=== PATIENT | female | born 1970 | race Caucasian/White ===

== ENCOUNTER 2017-06-15 08:24 | Observation (INO) | payer OTHER ==
[~2017-06-15] VITALS: Ht 170.2 cm; Wt 95.3 kg
[2017-06-15 09:08] LABS: BASE EXCESS -0.7 mEq/L (-3 to +3); BICARBONATE 23.4 mEq/L (22-26); METHEMOGLOBIN 0.6 % (0-1.5); PCO2 36 mm Hg (35-45); PO2 258 mm Hg (80-100); pH 7.42 (7.35-7.45)
[2017-06-15 09:09] LABS: COMMENTS - BLOOD GASES A+C+; DEVICE NRB; FI02 100 %; O2 FLOW 15 L/MIN; SITE RR
[2017-06-15 09:22] LABS: BASOPHIL (%) 0.7 % (0-1); BASOPHIL COUNT 0.1 K/uL (0-0.1); EOSINOPHIL (%) 0.4 % (0-5); HEMATOCRIT 41.7 % (36.0-46.0); HEMOGLOBIN 14.1 G/DL (11.9-15.5); IMMATURE GRANULOCYTE (%) 0.6 % (0.0-0.7); LYMPHOCYTE (%) 16.5 % (15-42); LYMPHOCYTE COUNT 1.7 K/uL (1.0-2.8); MCH 30.3 PG (29.0-34.0); MCHC 33.8 G/DL (30.0-36.0); MCV 89.5 FL (83-99); MONOCYTE (%) 4.9 % (3-12); MONOCYTE COUNT 0.5 K/uL (0-0.8); NEUTROPHIL (%) 76.9 % (45-76); NEUTROPHIL COUNT 7.8 K/uL (1.8-6.4); PLATELET COUNT 249 K/uL (156-360); RBC DIS.WIDTH-CV 12.8 % (11.8-14.6); RBC DIS.WIDTH-SD 42.1 % (39-53); RED BLOOD COUNT 4.66 M/uL (3.80-5.20); WHITE BLOOD COUNT 10.1 K/uL (4.1-10.2)
[2017-06-15 09:30] LABS: CHLORIDE 107 mEq/L (99-109); SODIUM 142 mEq/L (136-147)
[2017-06-15 09:32] LABS: GLUCOSE 107 mg/dL (70-99)
[2017-06-15 09:36] LABS: CREATININE 0.7 mg/dL (0.6-1.3); GFR ESTIMATE (CALCULATED) > 59 mL/min/
[2017-06-15 09:37] LABS: UREA NITROGEN (BUN) 16 mg/dL (9-23)
[2017-06-15 09:44] LABS: TROP-I INTERPRETATION NEGATIVE; TROPONIN-I 0.11 ng/mL (0.0-0.30)
[2017-06-15 13:16] LABS: BASE EXCESS 0.1 mEq/L (-3 to +3); BICARBONATE 24.7 mEq/L (22-26); CARBOXY HGB 1.6 % (0-5); COMMENTS - BLOOD GASES A+C+; DEVICE NRB; METHEMOGLOBIN 1.4 % (0-1.5); O2 FLOW 15 L/MIN; PCO2 39 mm Hg (35-45); PO2 126 mm Hg (80-100); SITE RR; TOTAL RESP RATE 21 resp/min; pH 7.41 (7.35-7.45)
[2017-06-15 16:23] VITALS: BP 126/63
[2017-06-15 21:49] VITALS: BP 110/64
[2017-06-16 00:09] VITALS: BP 112/64
[2017-06-16 06:30] LABS: HEMATOCRIT 38.8 % (36.0-46.0); HEMOGLOBIN 12.8 G/DL (11.9-15.5); MCH 30.1 PG (29.0-34.0); MCV 91.3 FL (83-99); PLATELET COUNT 242 K/uL (156-360); RBC DIS.WIDTH-SD 43.7 % (39-53); RED BLOOD COUNT 4.25 M/uL (3.80-5.20); WHITE BLOOD COUNT 8.1 K/uL (4.1-10.2)
[2017-06-16 06:53] LABS: ALBUMIN 3.7 G/DL (3.2-4.8); ALKALINE PHOSPHATASE 56 IU/L (3-129); ALT (GPT) 16 IU/L (3-49); AST (GOT) 14 IU/L (2-34); CHLORIDE 107 MEQ/L (99-109); CREATININE 0.7 MG/DL (0.6-1.3); GFR ESTIMATE (CALCULATED) > 59 mL/min/; GLUCOSE 108 mg/dL (70-99); POTASSIUM 4.2 MEQ/L (3.7-5.4); SODIUM 142 MEQ/L (136-147); TOTAL PROTEIN 6.2 G/DL (6.4-8.3); UREA NITROGEN (BUN) 15 mg/dL (9-23)
[2017-06-16 08:57] VITALS: BP 127/85
== END 2017-06-16 10:22 | disposition home or self-care (01) ==
LOC: EME 08:24 → TRA 08:24 → 5WEST 13:47 → EDOF 13:47 → ENRESERV 14:00 → EDOF 14:44 → 5WEST 15:10
PROVIDERS: Emergency Medicine; Hospitalist
PROC: 6A151ZZ Decompression, Circulatory, Multiple (ICD-10-PCS; principal; 2017-06-15)
DX: T58.91XA Toxic effect of carbon monoxide from unspecified source, accidental (unintentional), initial encounter (principal); R41.0 Disorientation, unspecified; R51 Headache; F41.9 Anxiety disorder, unspecified; F43.0 Acute stress reaction
CPT/HCPCS: 36600; 71045; 80048; 80053; 82803; 82810; 84484; 85025; 85027; 93005; 99281; 99285; G0378; J2060; J2405